=== PATIENT | female | born 1960 | race Caucasian/White ===

== ENCOUNTER 2018-03-14 06:41 | Emergency (ER) | payer BC, SELFPAY ==
[2018-03-14 06:42] VITALS: BP 181/101; PULSE 95; RESP 20; TEMP 36.5; O2SAT 97; BMI 31.1
--- NOTE | 2018-03-14 07:18 | ED.DCSUM_ITS ---
- ER Visit Summary Date of Service: 03/14/18 Chief Complaint: Back pain History of Present Illness: The patient is a 57 F presents with back pain after sitting crisscross for about 3 hours. This happened 5 days ago. She describes left paraspinal pain with radiation to her left leg. No bowel or bladder compromise. No urinary retention. No saddle anesthesia. No fevers. She is able to ambulate. Physical Examination: Otherwise unremarkable exam. Abdomen is soft and nontender without a suprapubic mass. Patient has paraspinal back pain on the left in the sacral region. She has a positive straight leg test on the left. 1+ patellar and Achilles reflexes bilaterally. Normal plantar flexion and dorsiflexion of the great toe and foot bilaterally. Emergency Department Course and Treatment: Patient has sciatica. I will treat her symptomatically. Kenalog and analgesia will be given apparently she will see her physician later on in the day. Disposition: Discharged in stable condition Impression: Sciatica, back pain This note was generated with [employer] dictation software. It may contain incorrect words, spelling, and punctuation that were not noted in review of the chart prior to signing ED Disposition - Plan for ED Patient: Chief Complaint: Back Referrals: Alex Leung DO [Primary Care Provider] -
--- NOTE | 2018-03-14 07:19 | ED.DEP ---
ED Disposition - Plan for ED Patient: Disposition: Home or Assisted Living Chief Complaint: Back Instructions: ED Spasm Back No Trauma, ED Sprain Strain Lumbar Prescriptions: Naproxen [Naprosyn] 500 mg PO BID PRN #20 tab Referrals: Alex Leung DO [Primary Care Provider] - 1 Day
[2018-03-14] MEDS: oxyCODONE 5 MG Tablet PO (07:34)
[2018-03-14] MEDS: Triamcinolone Acetonide 40 MG/ML Vial IM (07:35)
== END 2018-03-14 08:05 | disposition home or self-care (01) ==
PROVIDERS: Emergency Provider Emergency Medicine; Family Provider Student in an Organized Health Care Education/Training Program; PCP Student in an Organized Health Care Education/Training Program
DX: M54.30 Sciatica, unspecified side (principal); M54.9 Dorsalgia, unspecified; F32.9 Major depressive disorder, single episode, unspecified
CPT/HCPCS: 99283

== ENCOUNTER 2018-03-26 07:30 | Emergency (ER) | payer BC, SELFPAY ==
[2018-03-26 07:31] VITALS: BP 181/108; PULSE 108; RESP 16; TEMP 36.5; O2SAT 97; BMI 29.2
--- NOTE | 2018-03-26 08:12 | RAD_ITS ---
STUDY: X-RAY - LUMBAR SPINE REASON FOR EXAM: Female, 57 years old. Back pain TECHNIQUE: 5 view(s) of the lumbar spine were obtained. COMPARISON: None FINDINGS: There is no evidence of fracture or dislocation in the lumbar spine. The vertebral body heights are well-maintained. There are degenerative changes with disc space narrowing at L5/S1. RAD/L/S Spine Min 4 Views IMPRESSION: No fracture or dislocation in the lumbar spine. Disc space narrowing at L5/S1. Electronically Signed: Kb Allen, at 9:17 EDT Tel , Service support ,
--- NOTE | 2018-03-26 08:12 | ED.DCSUM_ITS ---
- ER Visit Summary Date of Service: 03/26/18 Chief Complaint: Back pain History of Present Illness: The patient is a 57 F who states that she has had back pain for 4 weeks. She states that this originally started in the middle of night after an evening in which she sat crisscross for about 3 hours. Other than that she cannot think of anything that she would have done abnormally to result in pain. The patient states that she was seen at urgent care emergency room and primary care physician's office. She states that she has done anti- inflammatories, muscle relaxants, creams, a brace (which sometimes helped), and steroids. She has had injection of Kenalog and prednisone. Patient states that she leaves next week for [place]. The patient was given referral to physical therapy but is not enrolled yet. She denies any fevers or rashes. She denies any bowel or bladder dysfunction. No loss of sensation or muscle tone. Physical Examination: Afebrile vital signs are stable Gen: Well-nourished well-developed Head: Normocephalic atraumatic Eyes: Perrl EOMI ENT: TMs clear no rhinorrhea moist mucous membranes Neck: Supple no lymphadenopathy no JVD nontender CVS: Regular rate rhythm no murmurs normal S1-S2 Respiratory: No distress clear to auscultation bilaterally chest nontender Abdomen: Soft nontender nondistended normal bowel sounds no masses Back: Tender palpation over the left SI joint and inferior to that point. There is some tenderness over the piriformis musculature. Extremity: Nontender no edema Skin: Normal color no rash Neuro: alert orientated ?3 CN II-XII intact normal strength sensation reflexes antalgic gait cerebellar Psych: Normal affect normal mood Test Results: Lumbar sacral films were obtained. There are no lytic lesions noted. Significant arthritic changes at the L5-S1 interspace were noted. Emergency Department Course and Treatment: Clinisync was reviewed. Patient has significant arthritic changes. I would suspect there is a high probability of disc disease. Patient was encouraged to follow-up with primary care. We talked about the natural course of back pain and high probability of resolution as well as what to do if it does not resolve. We talked about the need for physical therapy and I would suspect that in the future the patient would need an MRI if her symptoms do not resolve. We talked about return instructions especially in light of any neurologic deficits. I will write the patient to have some OxyIR as well as some lidocaine cream. We talked about the use of benzodiazepines in conjunction with narcotics and the complications. Her will be with her. Impression: 1. Left lumbar radiculopathy This note was generated with [employer] dictation software. It may contain incorrect words, spelling, and punctuation that were not noted in review of the chart prior to signing ED Disposition - Plan for ED Patient: Disposition: Home or Assisted Living Chief Complaint: Back Instructions: ED Sciatica Prescriptions: Oxycodone [Oxyir] 5 - 10 mg PO Q6H PRN PRN 4 Days #20 tab PRN Reason: Pain Lidocaine [Lidoderm] 1 ea TP BID PRN #10 adh..patch PRN Reason: Pain Referrals: Alex Leung DO [Primary Care Provider] - 3-5 Days
[2018-03-26] MEDS: oxyCODONE 5 MG Tablet 10 MG PO (10:01)
== END 2018-03-26 10:10 | disposition home or self-care (01) ==
PROVIDERS: Emergency Provider Emergency Medicine; Family Provider Student in an Organized Health Care Education/Training Program; PCP Student in an Organized Health Care Education/Training Program
DX: M54.16 Radiculopathy, lumbar region (principal); I10 Essential (primary) hypertension; K21.9 Gastro-esophageal reflux disease without esophagitis; F32.9 Major depressive disorder, single episode, unspecified
CPT/HCPCS: 72110; 99283

== ENCOUNTER 2020-10-22 11:58 | Day surgery (SDC) | payer BC, SELFPAY ==
[2019-02-01 09:36] VITALS: BMI 30.2
[2020-10-11 09:47] VITALS: BMI 31.2
--- NOTE | 2020-10-21 11:50 | EKG12_ITS ---
Test Reason : PREOP Blood Pressure : / mmHG Vent. Rate : 093 BPM Atrial Rate : 093 BPM P-R Int : 166 ms QRS Dur : 086 ms QT Int : 350 ms P-R-T Axes : 031 036 063 degrees QTc Int : 435 ms Normal sinus rhythm Low voltage QRS Borderline ECG Confirmed by KAMALA SIFUENTES, RUTH ([id number]), photography editor MOUSTAPHA NICHOLE ([id number]) on 10/22/2020 10:55:56 AM Referred By: Danika Pablo Confirmed By:RUTH WRAY MD
--- NOTE | 2020-10-21 20:10 | HP.PCM_ITS ---
History and Physical Date of Admission: 10/22/20 HISTORY AND PHYSICAL ? Nimisha Carlisle 1960 ? ? REFERRING PHYSICIAN: Alex Leung, DO ? CHIEF COMPLAINT: Consult (Consult Gallbladder) ? HPI: The patient is a 59 year old female presents with RUQ abdominal pain. She presents with RUQ abdominal pain she feels that she has had this since her teens but it was attributed to a nervous stomach. It has been worsening in the past few weeks. She also notes intermittent diarrhea She denies fevers. She has intermittent nausea, but denies emesis. US RUQ abdomen 08/12/2020 - findings suggestive of hepatic steatosis and focal fatty sparing, multiple gallstones and/or sludge ? ? PAST MEDICAL HISTORY Diagnosis Date ? Adjustment disorder with depressed mood ? ? Anxiety state, unspecified ? ? Diverticulosis of colon (without mention of hemorrhage) ? ? Essential hypertension, benign ? ? GERD (gastroesophageal reflux disease) ? ? Headache(784.0) ? ? rare ? Hyperlipidemia ? ? Impaired fasting blood sugar 10/2014 ? Internal hemorrhoids without mention of complication ? ? Mitral valve disorders(424.0) ? ? MVP ? Palpitations ? ? PAST SURGICAL HISTORY Procedure Laterality Date ? COLONOSCOP W/ OR W/O BRSH SPEC ? 03/18/12 ? repeat 10 years ? D&C, DIAG AND/OR THERAPEUTIC ? 1990 ? Dilation & curettage ? EGD W/O OR W/BRUSH/WASH ? 07/11/13 ? EGD ? REMOVAL OF TONSILS,<12 Y/O ? 23 yo ? Tonsillectomy ? ? Current Outpatient Medications Medication Sig ? citalopram (CELEXA) 20 mg tablet Take 1 tablet by mouth once daily ? rOPINIRole (REQUIP) 0.25 mg tablet Take one(1) to two(2) tablets at bedtime per Dr. Coulter ? dulaglutide (TRULICITY) 0.75 mg/0.5 mL pen injector Inject 0.75 mg subcutaneously one time a week. Inject dose once per week. Discard Pen After ? buPROPion XL (WELLBUTRIN XL) 300 mg 24 hr tablet Take 1 tablet by mouth once daily. ? LORazepam (ATIVAN) 1 mg tablet Take 1 tablet by mouth twice daily as needed for Anxiety for up to 30 days. ? omeprazole (PRILOSEC) 40 mg capsule Take 1 capsule by mouth once daily. ? amLODIPine (NORVASC) 5 mg tablet Take 5 mg by mouth once daily. ? cholecalciferol (VITAMIN D3) 50 mcg (2,000 unit) tablet Take 1 tablet by mouth once daily. ? lisinopril (ZESTRIL, PRINIVIL) 10 mg tablet Take 1 tablet by mouth once daily. ? atorvastatin (LIPITOR) 40 mg tablet Take 1 tablet by mouth once daily. ? clobetasol (TEMOVATE) 0.05 % ointment Use thin layer over affected area BID x 8 weeks then use once weekly for maintenance ? conjugated estrogens (PREMARIN) vaginal cream Use 1 gram nightly x 2 weeks then use 1/2-1 gram 1-3 times weekly for maintenance to affected area ? vitamin b complex (B COMPLETE) tab Take 1 tablet by mouth once daily. ? Blood Pressure Test Kit-Large (QUICK RESPONSE BP MONITOR) kit 1 Each once daily. ? ? ALLERGIES: Metformin, Cat/Dogs [Other], Dust Mites, Effexor [Venlafaxine Hcl], Penicillins, Pollen, [place] [Other], Sulfa (Sulfonamide Antibiotics), and Zoloft [Sertraline Hcl] ? PERSONAL HISTORY: Social History ? Tobacco Use ? Smoking status: Former Smoker ? ? Packs/day: 0.30 ? ? Years: 25.00 ? ? Pack years: 7.50 ? Smokeless tobacco: Never Used ? Tobacco comment: quit 25 years ago Substance Use Topics ? Alcohol use: Yes ? ? Comment: 1 -2 drinks per year ? Drug use: No ? FAMILY HISTORY Problem Relation Age of Onset ? Diabetes Mother ? ? dialysis ? Thyroid Mother ? ? Kidney Disease Mother ? ? other ([place] Mother ? ? diverticulitis ? Cancer Father ? ? prostate ? other ([place]) Father ? ? other (depression) Brother ? ? other ([place]) Brother ? ? bothers x2, both P's ? Thyroid Brother ? ? Colon Cancer Maternal Aunt ? ? The review of systems data was entered by the nurse and reviewed by me ? Nursing Notes: Carlos Holland LPN 10/02/2020 2:54 PM Signed REVIEW OF SYSTEMS: General: The patient NOTES fatigue, denies weight loss, NOTES weight gain, denies feeling hot, and denies feelings of cold. Eyes: The patient denies glaucoma, denies eye injury/surgery, wears glasses or contacts. Ear/Nose/Throat: The patient denies allergies, NOTES hayfever, denies ear infections, and denies bloody noses. Cardiovascular: The patient denies chest pain, denies heart disease, NOTES high blood pressure,denies cardiac stent, denies prior heart attack, denies irregular heart beat, denies high cholesterol, denies poor circulation, denies heart failure, other cardiac issues, denies claudication, denies cold feet, denies peripheral arterial stent. Respiratory: The patient denies tuberculosis, denies pneumonia, denies frequent cough, denies pulmonary embolism, denies shortness of breath, and denies coughing up blood. Gastrointestinal: see HPI, denies blood in stools, denies hematemesis Kidney/Bladder: The patient denies kidney stones, denies urine infections, and denies bloody urine. Skin: The patient denies a history of skin cancer, denies bleeding/changing moles, and denies a history of skin rash. Neurologic: The patient denies a history of epilepsy/convulsions, denies headaches, denies head/spinal injuries, and denies stroke/TIA. Psychiatric: notes anxiety issues, denies substance abuse, uses one lorazepam to help with sleeping. Endocrine: The patient denies thyroid disorders, NOTES diabetes, and denies hormonal problems. Hematologic: The patient denies a history of bruising, denies bleeding, and denies anemia, denies blood clots. Infections: The patient denies a history of measles and mumps, denies rheumatic fever, and denies sexually transmitted diseases. Musculoskeletal: has low back pain occasionally, NOTES sciatica, denies knee/foot trouble, NOTES arthritis, or denies gout. Gynecological: last menstrual period 08/10/2010 When was patient's last Mammogram screening? 09/2019 Last Colonoscopy: 03/2012 Carlos Holland LPN ? ? PHYSICAL EXAMINATION: General: The patient is 59 year old female, well nourished, well hydrated in no acute distress. The patient is oriented to time, place, and person. VITALS: Pulse 107, temperature 37.2 ?C (99 ?F), height 157.5 cm (5' 2), weight 78.7 kg (173 lb 6.4 oz), SpO2 97 %. Body mass index is 31.72 kg/m?. ? Head ? Normocephalic. EOM intact with sclera clear and no icterus noted. Wearing glasses. Mouth with mucus membranes moist. Neck - supple with no jugular venous distention noted. Trachea is midline. Lungs ? clear to auscultation. Normal breath sounds. No rales/rhonchi/wheezing noted. No labored breathing noted, such as retractions. No cough heard. Heart ? normal S1 and S2 auscultated. No rubs/clicks/murmurs noted. Regular rate. Abdomen ? soft and benign. Protuberant with rectus diastasis noted. Normal bowel sounds. No abdominal bruits noted. Difficult to determine if any masses or organomegaly due to body habitus. Extremities ? no calf tenderness noted. No pitting edema noted. Skin ? normal skin integrity. Neurological ? gait normal, no focal deficits noted. Psych ? calm and appropriate ? RADIOLOGIC STUDIES: As Noted ? ? IMPRESSION: RUQ abdominal pain, cholelithiasis ? PLAN: I have discussed the above with the patient. I have offered laparoscopic cholecystectomy, possible cholangiograms I have explained the procedure to the patient. I have counseled the patient as to the risks of the procedure, including but not limited to: infection, bleeding, injury to any blood vessels/nerves, scar tissue, injury to any intrabdominal organs, injury to bowel/bladder, injury to the common bile duct/biliary tree, bile leakage, intraabdominal abscess/bleeding, hernias at incisional sites, wound infections, complications of anesthesia, etc. ? the patient understands. ? The patient was offered a surgery/procedure . The provider and patient have discussed in detail the risk of exposure to and/or potential harm posed by the COVID-19 virus with having a surgery/procedure at this time versus the risk of? delaying the surgery/procedure. It is not possible to know either the risk of delaying the surgery or procedure or chance of getting an infection with perfect accuracy, but a joint decision was made between the patient and the provider ?to proceed at this time with the scheduled surgery/procedure. ? The patient wishes to proceed. She wishes to have her surgery at [facility]. ? ? ? I have answered all questions to the patient?s satisfaction and the patient has no further questions. ? . Diagnoses: (R74.8) Elevated alkaline phosphatase level (K82.8) Gallbladder sludge Return to Clinic: The patient is instructed to follow-up with me after the procedure. ? ? ? Danika Pablo MD
[2020-10-22] VITALS (8 sets, daily range): BP systolic 119–138; BP diastolic 63–73; PULSE 83–92; RESP 16–18; TEMP 36.1–37.4; O2SAT 93–99; BMI 31.0
[2020-10-22] MEDS: Lactated Ringers 1,000 ML 75 ML IV (12:56)
[2020-10-22 12:57] LABS: Hematocrit 40.5 % (37-47); Hemoglobin 12.5 g/dL (12.0-15.0); Mean Corp Hgb Conc 30.9 g/dL (32-36); Mean Corpuscular Hgb 27.2 pg (27.0-32.0); Mean Corpuscular Volume 88.2 fL (81-99); Mean Platelet Vol. 8.9 fl (6.2-12.0); Platelet Count 381 K/mm3 (150-450); RBC Distribution Width CV 13.4 % (11.6-14.6); RBC Distribution Width SD 43.5 fl (35.1-43.9); Red Blood Count 4.59 M/mm3 (4.2-5.4)
[2020-10-22 13:16] LABS: Bedside Glucose 100 mg/dL (70-110)
--- NOTE | 2020-10-22 13:35 | GALL_PTH ---
PATIENT: Rochelle COX LOC: [facility] [place][id number] AGE/SX: 59/F ROOM: RE10/22/[address]: Dr. Danika Pablo MD : 1960 BED: DIS: 10/22/2020 SPEC #: [id number] RECD: 10/22/20 14:46 STATUS: QUYEN JENNA #: [id number] ANABELA: 10/22/20 13:[address]: Danika Pablo DEPT: SURGICAL PATHOLOGY RECD BY: Maeve Farah ENTERED: 10/23/20 12:52 SP TYPE: JADE TIERNEY DR: Dr. Alex Leung DO Tissues: Gallbladder, NOS Procedures: Surgery Specimen Level III HEADER OPERATION: Laparoscopic cholecystectomy with IOC PRE-OP DIAGNOSIS: RUQ abdominal pain, cholelithiasis TISSUE SUBMITTED: Gallbladder MICROSCOPIC DIAGNOSIS Gallbladder, cholecystectomy: Mild chronic cholecystitis and cholelithiasis. Benign mucosal polyps with cholesterolosis. SJ:helen 10/24/2020 MICROSCOPIC DESCRIPTION Slides are reviewed. GROSS DESCRIPTION Received is one container labeled with the patient's name and designated gallbladder. The specimen consists of a gallbladder measuring 9 cm in length and up to 4 cm in diameter. The external surface is pink-arenas, smooth and glistening for the most part. Focally it is granular, hemorrhagic and contains cautery artifact. The gallbladder contains green bile and multiple irregular brownish-black mulberry stones measuring in aggregate 2.5 x 2.5 x 1.3 cm and 0.3 to 1.5 cm in greatest dimension. The mucosa shows several small polyps measuring 0.1 to 0.2 cm in greatest dimension. The gallbladder wall measures up to 0.1 cm in thickness. Teaching Young sections from the gallbladder and the cystic duct are submitted in one cassette. / CHAVA:helen 10/23/20 TC:3 CPT: 12766
--- NOTE | 2020-10-22 13:48 | RAD_ITS ---
STUDY: INTRAOPERATIVE CHOLANGIOGRAM. REASON FOR EXAM: Female, 59 years old. CHOLANGIOGRAM, PAIN FLUOROSCOPY TIME (if supplied): ( 3 seconds ) minutes/seconds. One image was submitted. TECHNIQUE: Intraoperative cholangiogram was performed by the surgeon. A single image was submitted. COMPARISON: None. FINDINGS: The visualized intrahepatic biliary ducts are unremarkable. The common bile duct is not dilated. No intraluminal filling defect is seen. There is free flow of contrast into the duodenum. RAD/Cholangiogram/ O R,Initial IMPRESSION: Unremarkable intraoperative cholangiogram. Electronically Signed: Zane Jhaveri MD at 12:58 EST , Service support ,
[2020-10-22] MEDS: Bupiv/Epi 0.25% 30 ML Vial (14:30)
--- NOTE | 2020-10-22 14:32 | PCM.OPRPT ---
Report of Operation Date of Procedure: 10/22/20 Pre-Operative Diagnosis: cholelithiasis, RUQ abdominal pain Post-Operative Diagnosis: same Surgery/Procedure Performed:: laparoscopic cholecystectomy with cholangiograms Description of Surgical Findings:: normal cholangiograms, chronic cholecystitis noted interactive digital media specialist: Geno Schulz D Type of Anesthesia:: General Anesthesiologist: Allison Cedeno Specimen's removed: gallbladder and contents Estimated Blood Loss (mL): < 10 ml Fluids Replaced: 900 ml RL Description of Procedure: After informed consent was given, the patient was brought to the Operating Room. Appropriate time out protocol was followed. The patient was placed in the supine position. The patient was then placed under general endotracheal anesthesia by the anesthesia provider. The abdomen was then prepped with a sterile surgical skin preparation and sterile surgical drapes were placed. An area superior to the umbilical dimple The infraumbilical skin fold was grasped with penetrating clamps and the skin and subcutaneous tissues were infiltrated with 0.25% marcaine with epinephrine. A skin incision was then made with a 15 blade scalpel. The anterior abdominal wall was elevated and a Veress needle was carefully inserted into the intraabdominal cavity. It was checked to be in the proper position with a normal saline drop test. A CO2 pneumoperitoneum was then created. Once this was achieved, then the Veress needle was removed and an 11mm trocar was placed in its stead. A 10mm laparoscope was then inserted into the trocar and careful attention was directed to the intraabdominal contents. There was no evidence of injury to any intraabdominal organs from insertion of the Veress needle or the trocar. Under direct visualization, a 5mm subxiphoid trocar and two lateral 5mm right subcostal trocars were placed. The skin and subcutaneous tissues at these sites were infiltrated with 0.25% marcaine with epinephrine prior to placement of these trocars. Attention was then directed to the right upper quadrant of the abdomen. Graspers were placed in the lateral trocars to grasp the distal aspect of the gallbladder and direct it cephalad and to grasp the gallbladder at Manuel?s pouch and direct it laterally. Dissection then began on the proximal gallbladder continuing down to the area of the triangle of Calot to bluntly dissect out the cystic duct. The neck of the gallbladder was identified and blunt dissection continued to dissect out a segment of the cystic duct. A clip was then placed on the neck of the gallbladder. A small ductotomy was then made. Some spill of bile was noted. A Ranfac catheter was brought in through a separate skin incision and placed into the cystic duct. An intraoperative cholangiogram was performed under fluoroscopy. The xray revealed no lesions in the common bile duct, arborization of the biliary tree, and good flow into the duodenum. The Ranfac catheter was then removed and two clips were placed proximal to the ductotomy and the cystic duct was then transected. The cystic artery was visualized and bluntly isolated and then two clips were placed proximally and one clip distally and then it was transected between the proximal and distal clips. The gallbladder was then from the liver bed using electrocautery. Once from the liver bed, it was placed in an Endobag and brought out via the umbilical port. It was then forwarded to pathology for analysis. The liver bed was carefully examined. There was no evidence of bile leakage or bleeding. The cystic duct stump and cystic artery stump had their clips intact and there was no evidence of bile leakage or bleeding. The remainder of the abdomen was grossly normal. The area was vigorously irrigated with normal saline and all irrigant was aspirated out. The CO2 was released and all trocars removed intact. The periumbilical fascia was approximated with a [id number] 0 vicryl suture. All skin incision were closed with 4-0 monocryl in a subdermal fashion. Cavilol and Steristrips were used to reinforce the skin closure. Sterile dressings were applied to all wounds. Sponge, needle and instrument count was verified and correct at time of skin closure. The patient was extubated and brought to the Recovery Room in stable condition. - Complications none noted - Admit VTE Documentation VTE Present on Admission: Yes VTE Mechan Device Prophylaxis: SCD's
--- NOTE | 2020-10-22 14:49 | PCM.DC.GB ---
Discharge Diet: No Restrictions Discharge Activity: Return to Normal Activity, May not drive while taking narcotic pain medications. Lifting Restrictions: no lifting greater than 20 pounds for two weeks Call your doctor if your incision/area has: Continuous Slow Oozing, Foul Smelling Discharge Additional Instructions: Recommended pain control regimen - May take 600 mg ibuprofen (Motrin) and then in 3-4 hours, may take 650 mg acetaminophen (Tylenol), then in 3-4 hours may take 600 mg ibuprofen, then in 3-4 hours may take 650 mg acetaminophen and so on for 2-3 days May take narcotic pain medication for pain that is not controlled by above and at night for comfort through the night Leave dressings in place May get dressings wet in shower - do not scrub in the area and pat dry Do not soak - no tub baths/swimming If dressing appears to be soiled/open at one end/no longer sealed - may remove dressing but leave site uncovered (do not replace with any type of dressing) - leave steristrips in place - may get wet but do not scrub in the area and pat dry Avoid carbonated beverages for a couple of days as they may cause bloating which may cause you discomfort after abdominal surgery You may have bleeding at the dressing sites. If small amounts and not seeping through the dressing, do not worry - leave dressing in place. If starting to seep through the dressing, you may remove the dressing and take a clean wash cloth and apply direct pressure to the area for at least an hour and then apply a new clean bandaid at the site. 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 Pablo Please call for a follow up appointment at the office to be seen in 1-2 weeks for a date and time available at your convenience. Call . Allergies/Adverse Reactions: Allergies Penicillins Allergy (Severe, Verified 10/22/20 12:30) Rash sertraline Allergy (Severe, Verified 10/22/20 12:30) lethargy venlafaxine Allergy (Severe, Verified 10/22/20 12:30) lethargy Sulfa (Sulfonamide Antibiotics) Allergy (Verified 10/22/20 12:30) Unknown Medications to take at Discharge Lorazepam [Ativan] 1 mg PO QHS PRN PRN 03/14/18 atorvastatin 40 mg tablet 40 mg PO QHS 01/26/19 cholecalciferol (vitamin D3) 50 mcg (2,000 unit) tablet 2,000 unit PO DAILY 01/26/19 omeprazole 40 mg capsule,delayed release 40 mg PO BID cap 01/26/19 Automatic BP Machine #1 ea 02/01/19 fluoxetine 40 mg capsule 40 mg PO DAILY cap 02/01/19 lisinopril 20 mg tablet 20 mg PO DAILY 02/01/19 amlodipine 5 mg tablet 5 mg PO DAILY #90 tab 03/20/20 Citalopram [Celexa] 20 mg PO DAILY 10/04/20 Ropinirole HCl 0.25 mg PO DAILY 10/04/20 bupropion HCl 300 mg 24 hr tablet, extended release 300 mg PO DAILY tab 10/11/20 Hydrocodone Bitart/Apap 5-325 [[place] 5MG-325MG] 1 tablet PO Q8H PRN PRN 5 Days #15 tablet 10/22/20 The following prescriptions were given: Hydrocodone Bitart/Apap 5-325 [[place] 5MG-325MG] 1 tablet PO Q8H PRN PRN 5 Days #15 tablet PRN Reason: Pain Transmission Status: Sent to [facility] Orders to be completed after discharge: 12 Lead EKG [[facility]] Time Frame: 10/07/20, Location: None Selected Primary Care Physician: Alex Leung DO [Primary Care Provider] - Test Results: Test results from this visit will be discussed in further detail at your follow-up appointment, if applicable. Please Follow Up With: Danika Palbo MD - see above
[2020-10-22 15:26] LABS: Bedside Glucose 137 mg/dL (70-110)
[2020-10-22] MEDS: Acetaminophen 325 MG Tablet 650 MG PO (16:32)
== END 2020-10-22 18:15 | disposition home or self-care (01) ==
LOC: SDC 11:58 → AC 11:58
PROVIDERS: Anesthesiology; PCP Student in an Organized Health Care Education/Training Program; Referring Provider Surgery; Visit Provider Surgery
PROC: (CPT 47610; principal; 2020-10-22 13:15)
DX: K80.10 Calculus of gallbladder with chronic cholecystitis without obstruction (principal); F43.21 Adjustment disorder with depressed mood; I10 Essential (primary) hypertension; K21.9 Gastro-esophageal reflux disease without esophagitis; F41.9 Anxiety disorder, unspecified; Z79.899 Other long term (current) drug therapy; Z82.49 Family history of ischemic heart disease and other diseases of the circulatory system; Z87.891 Personal history of nicotine dependence; Z88.0 Allergy status to penicillin; Z88.2 Allergy status to sulfonamides; Z99.2 Dependence on renal dialysis; M62.08 Separation of muscle (nontraumatic), other site; R74.8 Abnormal levels of other serum enzymes; K82.8 Other specified diseases of gallbladder
CPT/HCPCS: 00790; 47563; 74300; 76000; 82962; 85027; 87426; 88304; 93005; C9803; J7120; J2405

== ENCOUNTER 2021-04-06 09:37 | Emergency (ER) | payer BC, SELFPAY ==
[2020-10-22 12:24] VITALS: BMI 31.0
[2021-04-06 09:39] VITALS: BP 135/84; PULSE 92; RESP 27; TEMP 36.8; O2SAT 95; BMI 32.5
[2021-04-06 09:44] VITALS: BP 133/86; PULSE 88; RESP 16; O2SAT 94
--- NOTE | 2021-04-06 10:25 | EKG12_ITS ---
Test Reason : Blood Pressure : / mmHG Vent. Rate : 088 BPM Atrial Rate : 088 BPM P-R Int : 168 ms QRS Dur : 088 ms QT Int : 386 ms P-R-T Axes : 040 047 062 degrees QTc Int : 467 ms Normal sinus rhythm Low voltage QRS Confirmed by KENDRA SIFUENTES, CYNTHIA ([id number]), editor farm journal MOUSTAPHA NICHOLE ([id number]) on 04/10/2021 1:28:48 PM Referred By: RUBY Confirmed By:CYNTHIA GARDNER MD
--- NOTE | 2021-04-06 10:25 | CT_ITS ---
STUDY: CT BRAIN WITHOUT CONTRAST REASON FOR EXAM: Female, 60 years old. Syncope RADIATION DOSAGE (If Supplied By Facility): DLP = ( 745.49 ) mGycm TECHNIQUE: Transaxial CT imaging of the brain was performed without administration of intravenous contrast material. Sagittal and coronal 2-D MPR. Individualized dose optimization techniques were used for this CT. COMPARISON: None. FINDINGS: Extracranial soft tissues including orbital contents exhibit no acute abnormality. Craniofacial osseous structures within the field of view exhibit no acute abnormality. Paranasal sinuses, mastoid air cells and middle ear cavities are clear. Normal size ventricles and extra-axial spaces for the patient''s age. Normal pituitary, brainstem and cerebellum There is no acute intracranial bleed, mass or mass effect nor any specific evidence of acute territorial infarct. CT/Brain/Head without Contrast IMPRESSION: No acute intracranial process. Electronically Signed: Asif Fuller MD at 11:01 EDT Tel , Service support ,
[2021-04-06] MEDS: 0.9% Normal Saline 1,000 ML 1000 ML IV (10:35)
[2021-04-06 10:49] LABS: Absolute Lymphocyte Count 3.29 X10^3/uL (0.83-4.51); Absolute Neutrophil Count 6.9 X10^3/uL (2.0-7.7); Basophil# 0.06 X10^3/uL; Basophil% 0.5 % (0-1); Eosinophil# 0.23 X10^3/uL; Eosinophils% 2.1 % (0-5); Hematocrit 37.9 % (37-47); Hemoglobin 11.6 g/dL (12.0-15.0); Lymphocyte # 3.29 X10^3/ul (0.83-4.51); Lymphocyte % 29.8 % (19-41); Mean Corp Hgb Conc 30.6 g/dL (32-36); Mean Corpuscular Hgb 27.2 pg (27.0-32.0); Mean Corpuscular Volume 88.8 fL (81-99); Mean Platelet Vol. 9.1 fl (6.2-12.0); Monocyte% 4.5 % (0-10); NRBC Flagged by Analyzer 0 % (0-5); Neutrophil % 62.6 % (47-70); Platelet Count 305 K/mm3 (150-450); RBC Distribution Width CV 13.7 % (11.6-14.6); RBC Distribution Width SD 44.7 fl (35.1-43.9); Red Blood Count 4.27 M/mm3 (4.2-5.4)
[2021-04-06 10:58] LABS: Anion Gap 4 (5-15); BUN 23 mg/dL (7-18); BUN/Creat Ratio 22.3 RATIO (10-20); Calcium,Total 9.3 mg/dL (8.5-10.1); Chloride 107 mmol/L (98-107); Creatinine, Serum 1.03 mg/dL (0.55-1.02); EST Glomerular Filtration Rate 58 mL/min (>60); Est Glom Filt Rate - Afr Amer 70 mL/min (>60); Estimated Creatinine Clearance 45.36 ml/min; Glucose 205 mg/dL (74-106); Potassium 4.6 mmol/L (3.5-5.1); Sodium Level 136 mmol/L (136-145)
[2021-04-06 12:00] VITALS: BP 117/62; PULSE 78; RESP 14; O2SAT 97
--- NOTE | 2021-04-06 12:14 | EDS_ITS ---
HPI History of Present Illness Chief Complaint: Syncope Informant: patient and spouse/S.O. Onset/Context/Timing Onset: Today Current Severity: Mild Maximum Severity: Moderate Narrative Narrative: Patient presents following syncopal episode. Patient states that she was sitting in bed this morning eating some toast. She began to feel nauseated as if she needed to go to the bathroom. While sitting on the commode she became lightheaded and hot. She broke out in a cold sweat. She laid her head down on the counter and yelled for her . states when he arrived she was moaning and had a syncopal episode. He states that she fell back against the tank of the commode. He was able to move her to the recliner. She came to shortly following this with her eyes wide open. She did not remember what it happened. does state it appears that she has a bite injury on her tongue. Patient denies chest pain or palpitations. Patient states that she has not felt well for the last several weeks. She just had blood work done on Wednesday and is supposed to see her doctor tomorrow. [facility] Medical History Agoraphobia with panic disorder Anxiety and depression Diverticulosis Essential (primary) hypertension GERD (gastroesophageal reflux disease) Hyperlipidemia Internal hemorrhoids without mention of complication Home Medications lorazepam 1 mg PO QHS PRN PRN 03/14/18 [History Last Taken Unknown] atorvastatin 40 mg tablet 40 mg PO QHS 01/26/19 [History Last Taken Unknown] cholecalciferol (vitamin D3) 50 mcg (2,000 unit) tablet 2,000 unit PO DAILY 01/26/19 [History Last Taken Unknown] omeprazole 40 mg capsule,delayed release 40 mg PO BID cap 01/26/19 [History Last Taken 10/22/20] Automatic BP Machine #1 ea 02/01/19 [Rx Last Taken Unknown] lisinopril 20 mg tablet 10 mg PO DAILY 02/01/19 [History Last Taken 10/22/20] amlodipine 5 mg tablet 5 mg PO DAILY #90 tab 03/20/20 [Rx Last Taken 10/22/20] citalopram 20 mg PO DAILY 10/04/20 [History Last Taken 10/22/20] ropinirole 0.25 mg PO DAILY 10/04/20 [History Last Taken Unknown] bupropion HCl 300 mg 24 hr tablet, extended release 300 mg PO DAILY tab 10/11/20 [History Last Taken 10/22/20] dulaglutide [Trulicity] See Rx Instructions .ROUTE .COMPLEX 04/06/21 [History Last Taken Unknown] Allergy/AdvReac Type Severity Reaction Status Date / Time Penicillins Allergy Severe Rash Verified 04/06/21 09:44 sertraline Allergy Severe lethargy Verified 04/06/21 09:44 venlafaxine Allergy Severe lethargy Verified 04/06/21 09:44 Sulfa (Sulfonamide Allergy Unknown Verified 04/06/21 09:44 Antibiotics) Family History Father Myocardial infarction age 67 Mother Diabetes Heart disease CHF Brother Hypertension Brother Hypertension Surgical History History of colonoscopy History of dilatation and curettage History of esophagogastroduodenoscopy (EGD) Social History Smoking Status: Former smoker pack-years: 25 how long ago did patient quit smokin years ago alcohol intake: never substance use type: does not use caffeine: Yes Type: coffee Number of servings: 1 ROS ROS ED Constitutional Constitutional ED: Denies chills or fever(s) Eyes Eyes: Denies change in vision ENT ENT ED: Denies sore throat Cardiovascular Cardiovascular: Denies chest pain Respiratory/Chest Respiratory/Chest: Denies cough or dyspnea Gastrointestinal Gastrointestinal: Reports nausea; Denies abdominal pain, diarrhea or vomiting Genitourinary Genitourinary ED: Denies dysuria Musculoskeletal Musculoskeletal: Denies back pain Integumentary Denies rash Neurologic Neurologic: Reports weakness; Denies headache(s) Psychiatric Psychiatric: Denies anxiety or depression Endocrine Endocrinology: Denies polydipsia or polyuria Allergic/Immunologic Allergic/Immunologic ED: Denies urticaria EXAM Physical Exam Const Vital Signs: 04/06/21 09:39 04/06/21 09:44 04/06/21 09:50 Temperature 98.2 F Temperature Source Oral Pulse Rate 92 88 Respiratory Rate 27 H 16 Respiratory Effort Normal Non-Labored Respiratory Pattern Normal Blood Pressure 135/84 H 133/86 H Blood Pressure Mean 101 101 Pulse Ox 95 94 Oxygen Delivery Method Room Air Room Air 04/06/21 12:00 Temperature Temperature Source Pulse Rate 78 Respiratory Rate 14 Respiratory Effort Respiratory Pattern Blood Pressure 117/62 Blood Pressure Mean 80 Pulse Ox 97 Oxygen Delivery Method Room Air Positive well nourished and well developed General Appearance ED: well developed Eyes PERRL and EOMs intact bilaterally Neck supple Chest Wall inspection of chest normal and palpation of chest normal Resp normal respiratory effort and clear to auscultation bilaterally Cardio regular rate and regular rhythm GI non-tender Auscultation: hypoactive bowel sounds Palpation: soft Extremity normal to inspection Neuro oriented x3 Neuro Narrative: No focal neurologic deficits. Sensorium / Orientation: alert Psych mental status grossly normal Skin no rashes or lesions noted MDM MDM MDM Narrative Medical decision making narrative: Patient is given IV fluids. Head CT, EKG, labs obtained. Patient was observed on monitoring manager. Lab Data Attestation: I reviewed the patient's lab results. Labs: Laboratory Results - last 24 hr 04/06/21 04/06/21 10:30 10:30 WBC 11.0 RBC 4.27 Hgb 11.6 L Hct 37.9 MCV 88.8 MCH 27.2 MCHC 30.6 L RDW Std Deviation 44.7 H RDW Coeff of Samantha 13.7 Plt Count 305 MPV 9.1 Immature Gran % (Auto) 0.500 Neut % (Auto) 62.6 Lymph % (Auto) 29.8 Snyder % (Auto) 4.5 Eos % (Auto) 2.1 Baso % (Auto) 0.5 Absolute Neuts (auto) 6.9 Absolute Lymphs (auto) 3.29 Nucleated RBC % 0 Sodium 136 Potassium 4.6 Chloride 107 Carbon Dioxide 25.0 Anion Gap 4 L BUN 23 H Creatinine 1.03 H Estim Creat Clear Calc 45.36 Est GFR (MDRD) Af Amer 70 Est GFR (MDRD) Non-Af 58 L BUN/Creatinine Ratio 22.3 H Glucose 205 H Calcium 9.3 Troponin I High Sens 4.0 Radiography Diagnostic Testing: Radiology Impression Brain CT 04/06/21 10:25 IMPRESSION: No acute intracranial process. Electronically Signed: Asif Fuller MD at 11:01 EDT Tel , Service support , EKG Initial EKG: Attestation: I personally reviewed and interpreted this EKG as follows: Interpretation: Sinus Rhythm (Sinus 88 with no acute ischemia.) Treatment and Re-Evaluation Comments:: Repeat evaluation patient feels much improved. She is sitting upright in bed, smiling, coloration is better. Test results discussed with patient and family at bedside. I believe she likely had a vasovagal syncopal episode. She describes prodrome with lightheadedness, cold sweats, feeling overheated. Although she did have a bite injury to her tongue I do not believe this represents true seizure activity. She did not have a post ictal period and certainly had the prodrome consistent with vasovagal syncope. Patient feels comfortable with discharge to home and will be with her family. She will follow-up with her doctor tomorrow as scheduled. Discharge Plan Triage Chief Complaint: Syncope ED Provider: Selene Mercedes Dx/Rx/DC Orders Clinical Impression: Vasovagal syncope Instructions: ED Fainting, Vagal Reaction Prescriptions: No Action lisinopril 20 mg tablet 10 mg PO DAILY RF: 0 (DME) Automatic BP Machine Qty: 1 RF: 0 cholecalciferol (vitamin D3) 2,000 unit tablet 2,000 unit PO DAILY RF: 0 omeprazole 40 mg capsule,delayed release(DR/EC) 40 mg PO BID RF: 0 atorvastatin 40 mg tablet 40 mg PO QHS RF: 0 bupropion HCl 300 mg tablet extended release 24 hr 300 mg PO DAILY RF: 0 lorazepam 1 MG tablet 1 mg PO QHS PRN PRN (Reason: Sleep) RF: 0 citalopram 20 MG tablet 20 mg PO DAILY RF: 0 ropinirole 0.25 MG tablet 0.25 mg PO DAILY RF: 0 Trulicity 0.75 mg/0.5 mL pen injector See Rx Instructions .ROUTE .COMPLEX RF: 0 amlodipine 5 mg tablet 5 mg PO DAILY Qty: 90 RF: 6 Primary Care Provider: Alex Leung Referrals: Alex Leung DO [Primary Care Provider] - Keep Shaheed appointment Disposition Disposition: Home, Self Care Discharge Date/Time: 04/06/21 12:22
== END 2021-04-06 12:22 | disposition home or self-care (01) ==
PROVIDERS: Emergency Provider Emergency Medicine; PCP Student in an Organized Health Care Education/Training Program
DX: R55 Syncope and collapse (principal); E78.5 Hyperlipidemia, unspecified; F32.9 Major depressive disorder, single episode, unspecified; F40.01 Agoraphobia with panic disorder; I10 Essential (primary) hypertension; K21.9 Gastro-esophageal reflux disease without esophagitis; Z79.899 Other long term (current) drug therapy; Z87.891 Personal history of nicotine dependence; R11.0 Nausea; K57.90 Diverticulosis of intestine, part unspecified, without perforation or abscess without bleeding
CPT/HCPCS: 70450; 80048; 84484; 85025; 93005; 96360; 99285

== ENCOUNTER 2021-09-08 08:59 | Emergency (ER) | payer BC, SELFPAY ==
[2021-09-08 09:00] VITALS: BP 140/75; PULSE 97; RESP 16; TEMP 36.7; O2SAT 98; BMI 28.1
[2021-09-08 09:28] VITALS: BP 148/81; PULSE 91; RESP 16; O2SAT 96
[2021-09-08] MEDS: 0.9% Normal Saline 1,000 ML 999 ML IV (09:32)
[2021-09-08] MEDS: Ondansetron 4 MG/2 ML Vial IV (09:37)
--- NOTE | 2021-09-08 09:41 | NURSING ---
CHEMISTRIES HEMOLIZED
--- NOTE | 2021-09-08 09:52 | EX.ED.DYSGE1 ---
HPI History of Present Illness Chief Complaint: Nausea/Vomiting/Diarrhea Informant: patient Onset/Context/Timing Onset: Days (2-3) Context: Gradual Onset Timing: Continuous Quality: Nonbloody diarrhea and emesis Current Severity: Severe Maximum Severity: Severe Worsened by: eating or drinking Relieved by: nothing Associated Symptoms Associated Symptoms: malaise, myalgias, cough, fevers, chills Associated Symptoms ED: cough Narrative Narrative: Patient has been symptomatic with COVID-19 for the last week, had a positive test and has been quarantining at home. Was unvaccinated. Has developed vomiting and diarrhea for the past 2 or 3 days, trouble keeping fluids down. Denies any hematemesis or hematochezia. Denies any dyspnea. Just feels crummy/malaised, but did have a brief syncopal episode while standing in the shower last night, with prodromal lightheadedness only. [facility] Medical History Agoraphobia with panic disorder Anxiety and depression Diverticulosis Essential (primary) hypertension GERD (gastroesophageal reflux disease) Hyperlipidemia Internal hemorrhoids without mention of complication Home Medications lorazepam 1 mg PO QHS PRN PRN 03/14/18 [History Last Taken Unknown] atorvastatin 40 mg tablet 40 mg PO QHS 01/26/19 [History Last Taken Unknown] cholecalciferol (vitamin D3) 50 mcg (2,000 unit) tablet 2,000 unit PO DAILY 01/26/19 [History Last Taken Unknown] omeprazole 40 mg capsule,delayed release 40 mg PO BID cap 01/26/19 [History Last Taken 10/22/20] Automatic BP Machine #1 ea 02/01/19 [Rx Last Taken Unknown] lisinopril 20 mg tablet 10 mg PO DAILY 02/01/19 [History Last Taken 10/22/20] citalopram 20 mg PO DAILY 10/04/20 [History Last Taken 10/22/20] ropinirole 0.25 mg PO DAILY 10/04/20 [History Last Taken Unknown] bupropion HCl 300 mg 24 hr tablet, extended release 300 mg PO DAILY tab 10/11/20 [History Last Taken 10/22/20] dulaglutide [Trulicity] See Rx Instructions .ROUTE .COMPLEX 08/01/21 [History Last Taken Unknown] amlodipine 5 mg tablet 5 mg PO DAILY #90 tab 04/17/21 [Rx Last Taken Unknown] promethazine 25 mg PO Q6H PRN PRN #20 tablet 09/08/21 [Rx Last Taken Unknown] Allergy/AdvReac Type Severity Reaction Status Date / Time Penicillins Allergy Severe Rash Verified 09/08/21 09:02 sertraline Allergy Severe lethargy Verified 09/08/21 09:02 venlafaxine Allergy Severe lethargy Verified 09/08/21 09:02 Sulfa (Sulfonamide Allergy Unknown Verified 09/08/21 09:02 Antibiotics) Family History Father Myocardial infarction age 67 Mother Diabetes Heart disease CHF Brother Hypertension Brother Hypertension Surgical History History of colonoscopy History of dilatation and curettage History of esophagogastroduodenoscopy (EGD) Social History Smoking Status: Former smoker pack-years: 25 how long ago did patient quit smokin years ago alcohol intake: never substance use type: does not use caffeine: Yes Type: coffee Number of servings: 1 ROS ROS ED Constitutional Constitutional ED: Reports body ache(s), chills, fatigue, fever(s), headache(s) and malaise Eyes Eyes: Denies change in vision or diplopia ENT ENT ED: Denies rhinorrhea or sore throat Cardiovascular Cardiovascular: Denies chest pain or palpitations Respiratory/Chest Respiratory/Chest: Reports cough; Denies dyspnea or dyspnea on exertion Gastrointestinal Gastrointestinal: Reports diarrhea, nausea and vomiting; Denies abdominal pain Genitourinary Genitourinary ED: Denies dysuria or hematuria Musculoskeletal Musculoskeletal: Denies back pain or neck pain Integumentary Denies abscess or rash Neurologic Neurologic: Reports headache(s); Denies paresthesias or weakness Psychiatric Psychiatric: Denies anxiety or suicidal thoughts EXAM Physical Exam Const Vital Signs: 09/08/21 09:00 09/08/21 09:28 Temperature 98.1 F Temperature Source Temporal Pulse Rate 97 91 Respiratory Rate 16 16 Blood Pressure 140/75 H 148/81 H Blood Pressure Mean 96 103 Pulse Ox 98 96 Oxygen Delivery Method Room Air Room Air Positive well nourished and well developed Constitutional Narrative: Malaised-appearing, no distress General Appearance ED: well developed and NAD HEENT Reports moist mucous membranes normocephalic and atraumatic Eyes PERRL and EOMs intact bilaterally Neck full ROM and supple Resp normal respiratory effort and clear to auscultation bilaterally Cardio regular rate, regular rhythm and no murmurs Rate: Negative for tachycardic GI non-tender and non-distended Auscultation: normoactive bowel sounds Palpation: soft Back/Spine no CVA tenderness General Back: other FROM Extremity normal to inspection and no calf tenderness General Extremety ED: Negative for edema, pulses abnormal or tenderness General Extremity: Negative for edema or pulses abnormal Neuro oriented x3, CN's II-XII intact bilaterally and no sensory deficits noted Sensorium / Orientation: awake and alert Motor Exam: strength 5/5 throughout Skin no rashes or lesions noted and no wounds MDM MDM MDM Narrative Medical decision making narrative: Electrolytes within normal limits, mildly prerenal given IV fluids, Zofran, doing well and tolerating oral fluids. Supportive care advised. Not hypoxic, inquiring about antibodies, referred for antibiotic infusion therapy, nurses to get a copy of patient's positive outpatient test if available. Lab Data Attestation: I reviewed the patient's lab results. Labs: Laboratory Results - last 24 hr 09/08/21 09/08/21 09:15 09:50 Sodium Cancelled 136 Potassium Cancelled 4.0 Chloride Cancelled 105 Carbon Dioxide Cancelled 22.0 Anion Gap Cancelled 9 BUN Cancelled 31 H Creatinine Cancelled 1.07 H Estim Creat Clear Calc Cancelled 43.67 Est GFR (MDRD) Af Amer Cancelled 67 Est GFR (MDRD) Non-Af Cancelled 55 L BUN/Creatinine Ratio Cancelled 29.0 H Glucose Cancelled 116 H Calcium Cancelled 9.2 Discharge Plan Triage Chief Complaint: Nausea/Vomiting/Diarrhea ED Provider: Alec Nair Dx/Rx/DC Orders Clinical Impression: COVID-19, Dehydration, mild, Nausea vomiting and diarrhea Instructions: Coronavirus Disease 2019 (COVID-19): Caring for Yourself or Others, ED - COVID Monoclonal AB Infusion ... Prescriptions: New promethazine [promethazine] 25 MG tablet 25 mg PO Q6H PRN PRN (Reason: Nausea) Qty: 20 RF: 0 No Action lisinopril 20 mg tablet 10 mg PO DAILY RF: 0 (DME) Automatic BP Machine Qty: 1 RF: 0 cholecalciferol (vitamin D3) 2,000 unit tablet 2,000 unit PO DAILY RF: 0 omeprazole 40 mg capsule,delayed release(DR/EC) 40 mg PO BID RF: 0 atorvastatin 40 mg tablet 40 mg PO QHS RF: 0 bupropion HCl 300 mg tablet extended release 24 hr 300 mg PO DAILY RF: 0 lorazepam 1 MG tablet 1 mg PO QHS PRN PRN (Reason: Sleep) RF: 0 citalopram 20 MG tablet 20 mg PO DAILY RF: 0 ropinirole 0.25 MG tablet 0.25 mg PO DAILY RF: 0 Trulicity 0.75 mg/0.5 mL pen injector See Rx Instructions .ROUTE .COMPLEX RF: 0 amlodipine 5 mg tablet 5 mg PO DAILY Qty: 90 RF: 6 Primary Care Provider: Alex Leung Referrals: Alex Leung DO [Primary Care Provider] - Activity Restrictions/Additional Instructions: Try to get a home portable pulse oximeter and closely watch your oxygen levels periodically. If you stay below 90% for more than a minute or so, and/or you are feeling like your breathing is getting worse, return to the emergency department for further evaluation. You are a candidate for monoclonal antibody infusion therapy, see the attached instructions for more information. They will call you concerning when they want you to come to the clinic to get the infusion which is a one-time dose to help protect you from getting more ill and becoming hospitalized with life-threatening illness due to Covid given your risk for worsening. Disposition Disposition: Home, Self Care
[2021-09-08 10:33] LABS: Anion Gap 9 (5-15); BUN 31 mg/dL (7-18); Calcium,Total 9.2 mg/dL (8.5-10.1); Chloride 105 mmol/L (98-107); Creatinine, Serum 1.07 mg/dL (0.55-1.02); EST Glomerular Filtration Rate 55 mL/min (>60); Est Glom Filt Rate - Afr Amer 67 mL/min (>60); Estimated Creatinine Clearance 43.67 ml/min; Glucose 116 mg/dL (74-106); Sodium Level 136 mmol/L (136-145)
[2021-09-08 12:16] VITALS: BP 150/74; PULSE 88; RESP 16; O2SAT 98
--- NOTE | 2021-09-08 13:31 | NURSING ---
ATTEMPTING TO GET COVID RESULTS FROM [facility]
[2021-09-08 13:50] VITALS: BP 138/70; PULSE 94; RESP 16; O2SAT 98
== END 2021-09-08 13:51 | disposition home or self-care (01) ==
PROVIDERS: Emergency Provider Emergency Medicine; PCP Student in an Organized Health Care Education/Training Program; Visit Provider Emergency Medicine
DX: U07.1 COVID-19 (principal); Z87.891 Personal history of nicotine dependence; E86.0 Dehydration; E78.5 Hyperlipidemia, unspecified; I10 Essential (primary) hypertension; R11.2 Nausea with vomiting, unspecified; R19.7 Diarrhea, unspecified
CPT/HCPCS: 80048; 96361; 96374; 99283; J7030; A4216; J2405

== ENCOUNTER 2021-09-09 09:10 | Outpatient (CLI) | payer BC, SELFPAY ==
[2021-09-09 09:21] VITALS: BP 129/77; PULSE 111; RESP 20; TEMP 36.5; O2SAT 99; BMI 27.8
[2021-09-09] MEDS: 0.9% Saline Lock 10 ML Syringe IV (09:24)
[2021-09-09 09:57] VITALS: BP 119/67; PULSE 90; RESP 16; TEMP 37.2; O2SAT 97
[2021-09-09 10:43] VITALS: BP 114/70; PULSE 80; RESP 16; TEMP 37.2; O2SAT 98
== END 2021-09-09 23:59 | disposition home or self-care (01) ==
LOC: MS3OUT 09:10 → MS3 09:11
PROVIDERS: PCP Student in an Organized Health Care Education/Training Program; Referring Provider Emergency Medicine; Visit Provider Emergency Medicine
DX: U07.1 COVID-19 (principal)
CPT/HCPCS: J7050; M0243; A4216; Q0240

== ENCOUNTER 2021-12-11 07:43 | Outpatient (CLI) | payer BC, SELFPAY ==
[2021-12-11 08:55] LABS: Cholesterol 158 mg/dL (200); High Density Lipoprotein 53 mg/dL; Triglycerides 96 mg/dL; Very Low Density Lipoprotein 19 mg/dL (5-40)
== END 2021-12-11 23:59 | disposition home or self-care (01) ==
PROVIDERS: PCP Student in an Organized Health Care Education/Training Program; Visit Provider Physician Assistant Medical
DX: E78.5 Hyperlipidemia, unspecified (principal); I10 Essential (primary) hypertension; R00.2 Palpitations
CPT/HCPCS: 36415; 80061

== ENCOUNTER 2022-04-28 10:58 | Day surgery (SDC) | payer BC, SELFPAY ==
--- NOTE | 2022-04-22 08:02 | EKG12_ITS ---
Test Reason : PRE OP Blood Pressure : / mmHG Vent. Rate : 093 BPM Atrial Rate : 093 BPM P-R Int : 172 ms QRS Dur : 090 ms QT Int : 384 ms P-R-T Axes : 064 060 071 degrees QTc Int : 477 ms Normal sinus rhythm Normal ECG Confirmed by KENDRA SIFUENTES, CYNTHIA ([id number]), news editor MOUSTAPHA NICHOLE ([id number]) on 04/22/2022 12:48:24 PM Referred By: Chris Bell Confirmed By:CYNTHIA GARDNER MD
--- NOTE | 2022-04-28 | BRBX_PTH ---
PATIENT: Rochelle COX LOC: [facility] [place] U#:[id number] AGE/SX: 61/F ROOM: RE04/28/[address]: Dr. Danika Pablo MD : 1960 BED: DIS: 04/28/2022 SPEC #: [id number] RECD: 04/28/22 14:18 STATUS: QUYEN REMary Ann #: [id number] ANABELA: 04/28/22 00:[address]: Danika Pablo DEPT: SURGICAL PATHOLOGY RECD BY: Mary Holt ENTERED: 04/28/22 15:45 SP TYPE: BREAST BX OT DR: Dr. Alex Leung DO Tissues: Left breast, NOS Procedures: Surgery Specimen Level V HEADER OPERATION: Left breast lumpectomy via wire localization, frozen section PRE-OP DIAGNOSIS: Left breast mass TISSUE SUBMITTED: Left breast mass MICROSCOPIC DIAGNOSIS Left breast mass, lumpectomy with needle localization: Extensive ductal carcinoma in situ. See cancer summary in the comment section. SJ:rg 05/04/2022 COMMENT BREAST CANCER SUMMARY Procedure - excision with wire-guided localization Specimen laterality - left Tumor site ? not specified Size (extent of DCIS): The DCIS extensively involves the section examined, about 80% of the sections examined. The largest focus of DCIS measured microscopically on the slide measures 2.2 x 2 cm in greatest dimension. Number of blocks with DCIS - 15 Number of blocks examined -16 Histologic type ? ductal carcinoma in situ Architectural pattern ? comedo and solid Nuclear grade ? grade 3 (high) Necrosis ? present, central (expansive comedo necrosis). Extensive cancerization of lobules is noted. Margin ? Margin uninvolved by DCIS. Distance from closest margins ? medial < 0.1 cm and anterior 0.1 cm Next closest margin ? 0.2 cm lateral margin Next closest margins - 0.4 cm inferior and posterior Regional lymph nodes ? no lymph nodes are submitted or found. Additional Pathologic Findings: - Intraductal hyperplasia with atypia. - Adenosis and radialis scar. - Fibrocystic changes. - Changes consistent with previous biopsy site. Ancillary Studies from previous specimen ([id number] performed at [facility]): ER ? low positive (1-10% of cells with nuclear positivity) Microcalcifications - present in DCIS and non-neoplastic tissue. Vascular calcifications are also noted. Clinical history - Please make reference to previous specimen ([id number] performed at [facility]), Breast, left 2:00 4 cm FN, core biopsy with diagnosis of high-grade ductal carcinoma in situ with cancerization of lobules and lymph node, left axillary, biopsy with diagnosis of fragments of lymph node negative for metastatic carcinoma and breast, left upper outer quadrant anterior, biopsy with diagnosis of high grade ductal carcinoma in situ. Rare associated microcalcifications present. PATHOLOGIC STAGING: pTis(DCIS) pNx pMx The above summary is in compliance with [employer] (CAP) Cancer Protocols Checklist and [place] [employer] on Cancer (AJCC), Staging Manual, 8th Ed. Case has been reviewed in consultation with Dr. Pablo who concurs with the above diagnosis. IDC:AM MICROSCOPIC DESCRIPTION Slides are reviewed. GROSS DESCRIPTION Received fresh for intraoperative consultation labeled with the patient's name is a specimen designated left breast mass. The specimen consists of a piece of fibroadipose tissue with needle localization x2 measuring 7 x 5 x 4 cm. The specimen is oriented as follows: short suture - superior, long suture - lateral, two short sutures - near nipple, two long sutures - posterior. The specimen is inked as follows: anterior - yellow, posterior - black, superior - blue, inferior - green, medial - red and lateral - orange. Serial sections reveal arenas-yellow fibrous area cut surfaces. One metallic clip is also noted. No mass lesion is identified. This information is conveyed to the surgeon intraoperatively. Allergy Nurse sections are submitted in 16 cassettes as follows: 1 - perpendicular anterior, posterior and lateral margins, 2??perpendicular superior, inferior and medial margins, 3 & 4 - area around the metallic clip, 5-16 - Allergy Nurse sections adjacent to and away from the metallic clip area. Sections are submitted after additional fixation. / CHAVA:helen 04/29/2022 TC:0 CPT: 04079, 67513
[2022-04-28] MEDS: Lactated Ringers 1,000 ML 15 ML IV (11:25)
[2022-04-28 11:37] VITALS: BP 171/90; PULSE 107; RESP 16; TEMP 37.2; O2SAT 98; BMI 27.9
--- NOTE | 2022-04-28 11:45 | BI_ITS ---
SURGICAL BREAST SPECIMEN RADIOGRAPH CLINICAL: Document presence of tissue clip marker in biopsy specimen. FINDINGS: Specimen shows presence of tissue clip marker. Electronically Signed: Zane Jhaveri MD at 14:45 EDT , BI/Breast Biopsy Specimen IMPRESSION: undefined
--- NOTE | 2022-04-28 12:06 | OP.PCM_ITS ---
Report of Operation Date of Procedure: 04/28/22 Pre-Operative Diagnosis: left breast DCIS Post-Operative Diagnosis: same as above Surgery/Procedure Performed:: left breast lumpectomy via wire localization Surgeon: Danika Pablo Type of Anesthesia: General Anesthesiologist: Milli Boston Specimen's removed: left breast lumpectomy via wire localization Estimated Blood Loss (mL): < 5 ml Fluids Replaced: 800 ml RL Description of Procedure: After informed consent was given, the patient was brought into the Breast Stereotactic Radiology suite. Appropriate time out protocol was followed. The patient was then placed in the prone position on the Gu stereotactic table. The patient?s left breast was placed in the opening at the head of the table. A housekeeping director compression mammogram was then obtained in the lateral view. The marker clip that was previously placed was identified. Stereo pictures of the lesion were then taken for XYZ coordinates. There were two sites of marker clips for which both sites were positive for DCIS. Fortunately, they were both in the upper outer quadrant and in close vicinity to each other. The Kopans needle was then positioned where it would be entering into the patient?s breast at one of the marker clip sites. The skin at this site was then cleansed with a surgical skin preparation. The skin and subcutaneous tissues at this site were then infiltrated with 1% xylocaine. The Kopans needle was then positioned into the patient?s breast at the proper coordinates of depth. A housekeeping director film was obtained which revealed the wire in proper position. Another Kopans needle was then positioned where it would be entering into the patient?s breast. The skin at this site was then cleansed with a surgical skin preparation. The skin and subcutaneous tissues at this site were then infiltrated with 1% xylocaine. The Kopans needle was then positioned into the patient?s breast at the proper coordinates of depth. A housekeeping director film was obtained which revealed the wire in proper position. The patient was then placed in the supine position and the wires were taped into place. A unilateral mammogram in the CC and MLO view were then taken for use in the OR. The patient tolerated this portion of the procedure well and was brought to the AC awaiting surgery in the OR. The patient was then brought to the Operating Room. Appropriate time out protocol was followed. The patient was then placed on the operating table in the supine position. Two wires had already been placed in the stereotactic biopsy room in the radiology department as described above. The left breast with the wire in placed was then prepped with a sterile surgical skin preparation and sterile surgical drapes were placed. The skin and subcutaneous tissues at the site of the breast lesion was then infiltrated with 1% xylocaine with epinephrine. A transverse curvilinear skin incision was then made at the upper outer quadrant of the patient's left breast. This was done with a 15 blade scalpel and carried down through to the subcutaneous tissues. Hemostasis was controlled with electrocautery. The wires were then palpated out within the breast tissue. It was brought into the wound from outside. The breast tissue surrounding the wires was then carefully palpated out and from the surrounding tissues using electrocautery. Margins of this bresat lumpectomy were marked with silk suture. The breast tissue, once from the breast, was then forwarded to the radiology department, where a specimen mammogram revealed that both marker clips were within the specimen. The breast tissue was then forwarded to pathology for analysis. Pathology review did not reveal any masses and therefore margins could not be assessed at this point in time. The wound cavity was carefully examined. No further suspicious tissue was palpated or visualized. Hemostasis was carefully controlled with electrocautery. The subdermal tissues were then approximated with vicryl suture. The incision was then reapproximated close using running monocryl suture. Cavilon and steristrips were then placed to reinforce the skin closure. Sponge, needle, and instrument count were verified and correct at the time of skin closure. A sterile dressing was then applied. The patient was then brought to the Recovery Room in stable condition. Complications none noted Admit VTE Documentation VTE Present on Admission: Yes VTE Mechan Device Prophylaxis: SCD's
[2022-04-28] MEDS: Lidocaine 1% /Epi 1:100 (20ml) 20 ML Vial (13:33)
--- NOTE | 2022-04-28 14:45 | DCINST_ITS ---
Discharge Instructions Follow Up Care Test Results: Test results from this visit will be discussed in further detail at your follow- up appointment, if applicable. Discharge Plan Admission Attending Provider: Danika Pablo Primary Care Provider: Alex Leung Instructions Additional Instructions / Restrictions: Recommended pain control regimen - May take 600 mg ibuprofen (Motrin) and then in 3-4 hours, may take 650 mg acetaminophen (Tylenol), then in 3-4 hours may take 600 mg ibuprofen, then in 3- 4 hours may take 650 mg acetaminophen and so on for 2-3 days May take narcotic pain medication for pain that is not controlled by above and at night for comfort through the night Leave dressings in place May shower, do not scrub in the areas of the dressings as they may unravel. If they become overly soiled you may remove them but leave incision site open to air. Do not soak - no tub baths/swimming Ice applied to areas of discomfort may help Regular diet as tolerated, drink plenty of fluids. For breast surgeries - wear supportive bra during the day to prevent the weight of your breasts from pulling on the incisional site. Please call my office for an appointment to see me in 1 week. Office number is If any questions, please call my office at and ask the stranding machine operator helper for the general surgery nurses desk Discharge Orders/Prescriptions Prescriptions: New hydrocodone-acetaminophen 5-325 mg tablet 1 tab PO Q8H 5 Days Qty: 15 0RF No Action (DME) Automatic BP Machine Qty: 1 0RF Dose Instruction: As directed Rx Instructions: As directed cholecalciferol (vitamin D3) 2,000 unit tablet 2,000 unit PO DAILY bupropion HCl 300 mg tablet extended release 24 hr 300 mg PO DAILY lisinopril 10 mg tablet 5 mg PO DAILY Premarin 0.625 mg/gram cream 0.625 mg vaginal DAILY clobetasol 0.05 % ointment 1 applic topical DAILY PRN (Reason: Skin Cleansing) vitamin B complex [B Complex-Vitamin B12] Tablet 1 tab PO DAILY lorazepam 1 mg tablet 1 mg PO BID PRN (Reason: Sleep) citalopram 20 MG tablet 20 mg PO DAILY ropinirole 0.25 MG tablet 0.25 mg PO QHS Rx Instructions: 1-2 tablets PRN qhs atorvastatin 40 mg tablet 40 mg PO QHS Referrals / Follow Up: Alex Leung DO [Primary Care Provider] - Disposition Disposition (needs filled in before D/C Order can be placed): Home, Self Care
[2022-04-28 14:48] VITALS: BP 135/88; BP 171/90; PULSE 110; RESP 16; TEMP 37.6; O2SAT 94
[2022-04-28 15:00] VITALS: BP 140/82; BP 171/90; PULSE 98; RESP 16; O2SAT 97
[2022-04-28 15:15] VITALS: BP 141/86; BP 171/90; PULSE 95; RESP 16; O2SAT 95
[2022-04-28 15:25] VITALS: BP 145/76; BP 171/90; PULSE 96; RESP 16; TEMP 37.8; O2SAT 96
[2022-04-28] MEDS: HYDROcodone Bitartrate/Apap 5/325 Tablet PO (15:50)
[2022-04-28 16:33] VITALS: BP 138/82; BP 171/90; PULSE 94; RESP 18; TEMP 36.4; O2SAT 99
== END 2022-04-28 16:38 | disposition home or self-care (01) ==
LOC: SDC 11:00 → AC 11:00
PROVIDERS: PCP Student in an Organized Health Care Education/Training Program; Referring Provider Surgery; Visit Provider Surgery
PROC: (CPT 19301; principal; 2022-04-28 13:15)
DX: D05.12 Intraductal carcinoma in situ of left breast (principal); I10 Essential (primary) hypertension; K21.9 Gastro-esophageal reflux disease without esophagitis; Z87.891 Personal history of nicotine dependence; E78.5 Hyperlipidemia, unspecified; F40.01 Agoraphobia with panic disorder; F32.A Depression, unspecified
CPT/HCPCS: 19301; 19081; 00404; 19281; 76098; 88305; 88307; 93005; J7120; J2405

== ENCOUNTER 2022-05-12 10:48 | Day surgery (SDC) | payer BC, SELFPAY ==
--- NOTE | 2022-05-12 08:41 | PCM.HP.BLA ---
History and Physical Date of Admission: 05/12/22 NAME: Nimisha Carlisle [facility] NO.: [id number] DATE OF SERVICE: 05/05/2022 ? : 1960 ? REFERRING PHYSICIAN:? Alex Leung, DO ? Nimisha is status post left breast lumpectomy via wire localization 04/28/2022 for DCIS at two locations. ? Pathology? from [facility]-? BREAST CANCER SUMMARY? Procedure - excision with wire-guided localization?? Specimen laterality - left? Tumor site ? not specified? Size (extent of DCIS):? ? The DCIS extensively involves the section examined, about 80% of the sections examined.? The? largest focus of DCIS measured microscopically on the slide measures 2.2 x 2 cm in greatest? dimension.? Number of blocks with DCIS - 15? ?Number of blocks examined -16? ?Histologic type ? ductal carcinoma in situ?Architectural pattern ? comedo and solid?Nuclear grade ? grade 3 (high)?Necrosis ? present, central (expansive comedo necrosis).? ?Extensive cancerization of lobules is noted.? Margin ? Margin uninvolved by DCIS.? Distance from closest margins ? medial < 0.1 cm and anterior 0.1 cm? ? Next closest margin ? 0.2 cm lateral margin? Next closest margins - 0.4 cm inferior and posterior? Regional lymph nodes ? no lymph nodes are submitted or found.? Additional Pathologic Findings:? - Intraductal hyperplasia with atypia.? ?- Adenosis and radialis scar.? ?- Fibrocystic changes.? ?- Changes consistent with previous biopsy site.?? ER ? low positive (1-10% of cells with nuclear positivity ? ? PAST MEDICAL HISTORY ?Adjustment disorder with depressed mood? ?Anxiety state, unspecified? ?Cholelithiasis with chronic cholecystitis? ?Diverticulosis of colon (without mention of hemorrhage)? ?Essential hypertension, benign? ?GERD (gastroesophageal reflux disease)? ?Headache(784.0)? ?rare ?Hyperlipidemia? ?Impaired fasting blood sugar10/07/2014 ?Internal hemorrhoids without mention of complication? 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 ?MVP ?Palpitations? PAST SURGICAL HISTORY ?COLONOSCOPY FLX DX W/COLLJ SPEC WHEN PFRMD 03/18/2012 ?repeat 10 years ?DILATION & CURETTAGE DX&/THER NONOBSTETRIC 09/06/1990 ?Dilation & curettage ?ESOPHAGOGASTRODUODENOSCOPY TRANSORAL DIAGNOSTIC 07/11/2013 ?EGD ?LAPS SURG CHOLECYSTECTOMY W/CHOLANGIOGRAPHYN/A010/22/2020 ?TONSILLECTOMY PRIMARY/SECONDARY <AGE 11 24 yo? ?Tonsillectomy ? ? Current Outpatient Medications ?buPROPion XL (WELLBUTRIN XL) 300 mg 24 hr tabletTake 1 tablet by mouth once daily ?lisinopril (ZESTRIL, PRINIVIL) 10 mg tabletTake 0.5 tablets by mouth once daily. ?peg 3350-Electrolytes (GOLYTELY) 236-22.74-6.74 -5.86 gram suspensionRefer to printed prep instructions from your provider. ?cholecalciferol (VITAMIN D3) 50 mcg (2,000 unit) tabletTake 1 tablet by mouth once daily. ?conjugated estrogens (PREMARIN) vaginal creamUse 1 gram nightly x 2 weeks then use 1/2-1 gram? 1-2 times weekly for maintenance to affected area ?rOPINIRole (REQUIP) 0.25 mg tabletTAKE 1-2 TABLETS BY MOUTH AT BEDTIME ?LORazepam (ATIVAN) 1 mg tabletTake 1 tablet by mouth twice daily as needed for up to 30 days. ?citalopram (CELEXA) 20 mg tabletTake 1 tablet by mouth once daily. ?atorvastatin (LIPITOR) 40 mg tabletTake 1 tablet by mouth once daily. ?Blood Pressure Monitor1 Each as directed. Dx: Hypertension ?vitamin b complex (B COMPLETE) tabTake 1 tablet by mouth once daily. ? ? ALLERGIES: Metformin, Cat/Dogs [Other], Dust Mites, Effexor [Venlafaxine Hcl], Penicillins, Pollen, Rag [place] [Other], Sulfa (Sulfonamide Antibiotics), and Zoloft [Sertraline Hcl] ? ? REVIEW OF SYSTEMS: Denies fevers ? ? PHYSICAL EXAMINATION: ? General:? The patient is 61 year old female, well nourished, well hydrated in no acute distress.? The patient is oriented to time, place, and person. ? VITALS: Blood pressure 188/97, pulse 118, temperature 37 ?C (98.6 ?F), height 157.5 cm (5' 2), weight 71.7 kg (158 lb),? SpO2 98 %. ? Head:? Normal cephalic, atraumatic ? Eyes: pupils are equally round, sclera are clear/anicteric ? Neck is supple with no tracheal deviation ? Chest: left breast incision is healing well ? Respiratory:? Normal respiratory excursion and pattern. ? Abdominal exam:? benign ? Extremities:? no clubbing, cyanosis or edema.? ? Neuro: non focal ? Psych: normal mood? IMPRESSION: s/p left breast lumpectomy for DCIS - margins are close ? PLAN:? ?I have discussed the above with the patient and her who is present with her I have recommended reexcision to ensure adequate margins for surgical treatment of DCIS. I have explained the procedure to the patient. I have counseled the patient as to the risks of the procedure, including but not limited to: infection, bleeding, injury to any blood vessels/nerves, scar tissue, cosmetic deformity, wound infections, complications of anesthesia, etc. ? the patient understands. The patient wishes to proceed. ? ? I have answered all questions to the patient?s satisfaction and the patient has no further questions. I have confirmed and edited as necessary, the PFSH and ROS obtained by others. . Diagnoses: (D05.12) Ductal carcinoma in situ of left breast? (primary encounter diagnosis) ? ? ?. ? Danika Pablo MD ? v
[2022-05-12 11:03] VITALS: BP 155/79; PULSE 97; RESP 16; TEMP 37; O2SAT 98; BMI 28.0
[2022-05-12] MEDS: Lactated Ringers 1,000 ML 75 ML IV (12:25)
--- NOTE | 2022-05-12 12:25 | BREAST_PTH ---
PATIENT: Rochelle COX LOC: [facility] [place] U#:[id number] AGE/SX: 61/F ROOM: RE05/12/[address]: Dr. Danika Pablo MD : 1960 BED: DIS: 05/12/2022 SPEC #: [id number] RECD: 05/12/22 14:20 STATUS: QUYEN JENNA #: [id number] ANABELA: 05/12/22 12:[address]: Danika Pablo DEPT: SURGICAL PATHOLOGY RECD BY: Rosenda Gonzales ENTERED: 05/13/22 08:22 SP TYPE: BREAST OTHR DR: Dr. Alex Leung, DO Tissues: Left breast, NOS Procedures: Surgery Specimen Level V HEADER OPERATION: Excision left breast lumpectomy PRE-OP DIAGNOSIS: DCIS TISSUE SUBMITTED: Re-excision left breast lumpectomy, one short suture - superior border, two short sutures - medial border or anti-tumor side, one long suture - lateral border MICROSCOPIC DIAGNOSIS Left breast lumpectomy, re-excision: Residual ductal carcinoma in situ with the follow characteristics: Architecture pattern ? solid and cribriform. Nuclear grade ? 3 Necrosis ? present, central (expansive ?comedo? necrosis). Additional findings ? intraductal hyperplasia with focal atypia. - Extensive changes consistent with previous biopsy site. See comment. SJ:helen 05/18/2022 COMMENT The ductal carcinoma in situ is 1 mm from the medial margin and 1 mm from the new margin close to medial portion of the specimen and is 0.3 cm away from the inferior margin. Ductal carcinoma in situ is present in 7 out of 10 blocks and measures 0.9 cm in the greatest dimension. Please make reference to previous specimen ([id number]) left breast mass, lumpectomy with needle localization with diagnosis of ?extensive ductal carcinoma in situ.? Please see detailed cancer summary in specimen [id number]. MICROSCOPIC DESCRIPTION Slides are reviewed. GROSS DESCRIPTION Received in fixative is one container labeled with the patient's name and designated re-excision left breast lumpectomy. The specimen consists of a piece of fibroadipose tissue measuring 6 x 4.5 x 1.5 cm. A piece of skin with central healed scar is also noted measuring 4 x 0.3 cm. One surface of the specimen shows ragged, hemorrhagic surface most likely represents the old margin. A few blood clots are also noted in that side of the specimen. The specimen is oriented as follows: one short suture - superior border, two short sutures - medial border, one long suture - lateral border. The specimen is inked as follows: superior margin - blue, inferior margin - green, medial margin - red, lateral margin - orange, new resection margin - black and old resection margin with hemorrhagic area - yellow. The specimen is serially sectioned and od not reveal any obvious mass lesion. The entire specimen is submitted in ten cassettes from lateral to medial margin. Cassette 1 contains the most lateral portion and cassette 10 contains the most medial margin. The specimen is submitted after additional fixation. / SJ:rg 05/13/2022 TC:0 CPT: 20183
[2022-05-12] MEDS: Lidocaine 1%/Epi 1:200 (30ml) 30 ML AMPUL (12:55)
--- NOTE | 2022-05-12 13:18 | OP.PCM_ITS ---
Report of Operation Date of Procedure: 05/12/22 Pre-Operative Diagnosis: left breast ductal carcinoma in situe with close ching ns Post-Operative Diagnosis: same as above Surgery/Procedure Performed:: left breast lumpectomy Description of Surgical Findings:: lumpectomy cavity with seroma fluid Surgeon: Danika Pablo director of public health: Prince Nichols Type of Anesthesia: General Anesthesiologist: Moraima Stock Specimen's removed: left breast tissue - anterior/medial/lateral margins tissue of left breast Estimated Blood Loss (mL): < 10 ml Fluids Replaced: 700 ml RL Description of Procedure: The patient was then brought to the Operating Room. Appropriate time out protocol was followed. The patient was then placed on the operating table in the supine position. The left breast was then prepped with a sterile surgical skin preparation and sterile surgical drapes were placed. The skin and subcutaneous tissues at the site of the previous breast incision was then infiltrated with local anesthetic with epinephrine. A transverse skin incision was then made at this site with a 15 blade scalpel and carried down through to the subcutaneous tissues. Hemostasis was controlled with electrocautery. The previous lumpectomy cavity was carefully palpated out. Using cautery, the margins of the anterior/medial/lateral borders of the lumpectomy site were excised out. Once the tissue was from the surrounding breast tissue, it was marked with suture on the non-tumor/cavity side to nelly borders. It was then forwarded to pathology. The wound cavity was carefully examined. No further suspicious tissue was palpated or visualized. Hemostasis was carefully controlled with electrocautery. The subdermal tissues were then approximated with vicryl suture. The incision was then reapproximated close using running monocryl suture. Cavilon and steristrips were then placed to reinforce the skin closure. Sponge, needle, and instrument count were verified and correct at the time of skin closure. A sterile dressing was then applied. The patient was then brought to the Recovery Room in stable condition. Grafts/Implants Used: none Complications none noted Admit VTE Documentation VTE Present on Admission: Yes VTE Mechan Device Prophylaxis: SCD's
--- NOTE | 2022-05-12 13:31 | EX.PCM.DISCH ---
Discharge Instructions Follow Up Care Test Results: Test results from this visit will be discussed in further detail at your follow-up appointment, if applicable. Discharge Plan Admission Attending Provider: Danika Pablo Primary Care Provider: Alex Leung Instructions Additional Instructions / Restrictions: Recommended pain control regimen - May take 600 mg ibuprofen (Motrin) and then in 3-4 hours, may take 650 mg acetaminophen (Tylenol), then in 3-4 hours may take 600 mg ibuprofen, then in 3-4 hours may take 650 mg acetaminophen and so on for 2-3 days May take narcotic pain medication for pain that is not controlled by above and at night for comfort through the night Leave dressings in place May shower, do not scrub in the areas of the dressings as they may unravel. If they become overly soiled you may remove them but leave incision site open to air. Do not soak - no tub baths/swimming Ice applied to areas of discomfort may help Regular diet as tolerated, drink plenty of fluids. Avoid any type of trauma to the left breast, even pushing/pressure applied to area/etc. Wearing a supportive bra is OK and encouraged. For breast surgeries - wear supportive bra during the day to prevent the weight of your breasts from pulling on the incisional site. Please call my office for an appointment to see me in 1-2 weeks. Office number is If any questions, please call my office at and ask the reaming machine operator for plastic for the general surgery nurses desk Discharge Orders/Prescriptions Prescriptions: New hydrocodone-acetaminophen 5-325 mg tablet 1 tab PO Q8H 3 Days Qty: 9 0RF No Action (DME) Automatic BP Machine Qty: 1 0RF Dose Instruction: As directed Rx Instructions: As directed cholecalciferol (vitamin D3) 2,000 unit tablet 2,000 unit PO DAILY bupropion HCl 300 mg tablet extended release 24 hr 300 mg PO DAILY lisinopril 10 mg tablet 5 mg PO DAILY Premarin 0.625 mg/gram cream 0.625 mg vaginal DAILY clobetasol 0.05 % ointment 1 applic topical DAILY PRN (Reason: Skin Cleansing) vitamin B complex [B Complex-Vitamin B12] Tablet 1 tab PO DAILY lorazepam 1 mg tablet 1 mg PO BID PRN (Reason: Sleep) citalopram 20 MG tablet 20 mg PO DAILY ropinirole 0.25 MG tablet 0.25 mg PO QHS Rx Instructions: 1-2 tablets PRN qhs atorvastatin 40 mg tablet 40 mg PO QHS Referrals / Follow Up: Alex Leung DO [Primary Care Provider] - Disposition Disposition (needs filled in before D/C Order can be placed): Home, Self Care
[2022-05-12 13:43] VITALS: BP 141/76; BP 155/79; PULSE 111; RESP 16; TEMP 36.6; O2SAT 97
[2022-05-12 13:45] VITALS: BP 152/81; BP 155/79; PULSE 108; RESP 16; O2SAT 95
[2022-05-12 13:58] VITALS: BP 134/68; BP 155/79; PULSE 100; RESP 16; O2SAT 98
[2022-05-12 14:15] VITALS: BP 124/74; BP 155/79; PULSE 94; RESP 16; TEMP 36.4; O2SAT 97
[2022-05-12] MEDS: HYDROcodone Bitartrate/Apap 5/325 Tablet PO (14:40)
== END 2022-05-12 14:58 | disposition home or self-care (01) ==
LOC: SDC 10:49 → AC 10:50
PROVIDERS: PCP Student in an Organized Health Care Education/Training Program; Referring Provider Surgery; Visit Provider Surgery
PROC: (CPT 19301; principal; 2022-05-12 12:10)
DX: C50.912 Malignant neoplasm of unspecified site of left female breast (principal); I10 Essential (primary) hypertension; E78.5 Hyperlipidemia, unspecified; F40.01 Agoraphobia with panic disorder; F32.9 Major depressive disorder, single episode, unspecified; F41.9 Anxiety disorder, unspecified
CPT/HCPCS: 19301; 00404; 88307; J7120; J2405

== ENCOUNTER → 2022-10-10 | Outpatient (CLI) | payer BC, SELFPAY ==
--- NOTE | 2022-10-10 08:58 | US_ITS ---
STUDY: ABDOMINAL ULTRASOUND - ELASTOGRAPHY REASON FOR VISIT: Female, 61 years old. Fatty infiltration of the liver. TECHNIQUE: Liver stiffness measurements were obtained on a [employer] [id number] ultrasound machine using a CA 1-7 probe following the SRU guidelines. 3 measurements were obtained using a 2-D-SWE method. The IQR/M was 24 % suggesting a quality data set. TECHNICAL QUALITY: Adequate. COMPARISON: Comparison is made with prior study done earlier in the day. FINDINGS: Liver: Fatty infiltration of the liver. Median liver stiffness measured 5 kPa. US/Elastography Parenchyma/Organ IMPRESSION: Liver stiffness measures 5 kPa compatible with F0-F1 (Normal to mild liver fibrosis) Metavir score. Electronically Signed: Zane Jhaveri MD at 10:50 EST ,
--- NOTE | 2022-10-10 08:58 | US_ITS ---
STUDY: ABDOMINAL ULTRASOUND - RIGHT UPPER QUADRANT REASON FOR VISIT: Female, 61 years old FATTY LIVER/ abn labs TECHNIQUE: Ultrasound evaluation of the right upper quadrant was performed with real-time and static saldaña-scale imaging. TECHNICAL QUALITY: Adequate. COMPARISON: None. FINDINGS: Liver: The liver is enlarged and measures 18.2 cm. There is increased echogenicity consistent with fatty infiltration. The bile ducts are within normal limits. There is hepatic color flow. The direction of portal flow is hepatopetal. There is no demonstrated mass lesion. Gallbladder: The patient is status post cholecystectomy. Common Bile Duct (C.B.D.): The common bile duct measures 4 mm. Pancreas: Normal size of the head, body and tail of the pancreas. There is normal echogenicity of the pancreas. There is no demonstrated pancreatic mass or cyst. Right Kidney: Normal size of the right kidney. The right kidney measures 11.7 cm x 6.3 cm x 4.6 cm. Normal renal cortex. The right cortex measures 1.3 cm. There is no demonstrated renal mass or cyst. There is no right hydronephrosis. US/Abdomen Limited IMPRESSION: Mild hepatomegaly. Fatty infiltration of the liver. The patient is status post cholecystectomy. Electronically Signed: Zane Jhaveri MD at 10:47 EST ,
== END | disposition home or self-care (01) ==
LOC: US 08:55
PROVIDERS: PCP Student in an Organized Health Care Education/Training Program; Referring Provider Student in an Organized Health Care Education/Training Program; Visit Provider Student in an Organized Health Care Education/Training Program
DX: K76.0 Fatty (change of) liver, not elsewhere classified (principal); R79.89 Other specified abnormal findings of blood chemistry; Z90.49 Acquired absence of other specified parts of digestive tract; K74.00 Hepatic fibrosis, unspecified
CPT/HCPCS: 76705; 76981